=== PATIENT | female | born 2005 | race Caucasian/White ===

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

== ENCOUNTER 2024-02-02 22:57 | Inpatient (IN) ==
[2024-02-02 23:49] LABS: Appearance Urine Clear (Clear); Bilirubin Urine Negative (Negative); Blood Urine Negative (Negative); Color Urine Yellow; Glucose Urine UA Negative (Negative); Ketones Urine Trace (Negative); Leukocyte Esterase Urine Negative (Negative); Nitrite Urine Negative (Negative); Protein Urine Negative (Negative); Specific Gravity Urine 1.015 (1.000-1.030); Urobilinogen Urine Negative (Negative)
[2024-02-02 23:55] LABS: Basophils # (auto) 0.02 K/uL (0.00-0.20); Basophils % (auto) 0.3 %; Eosinophils # (auto) 0.03 K/uL (0.00-0.50); Eosinophils % (auto) 0.4 %; Hematocrit (blood only) 36.7 % (37.0-47.0); Hemoglobin 13.1 g/dl (12.0-16.0); Immature Granulocytes # (auto) 0.02 K/uL (0.01-0.20); Immature Granulocytes % (auto) 0.3 %; Lymphocytes # (auto) 2.08 K/uL (1.20-3.40); Mean Corpuscular Hemoglobin 29.8 pg (25.0-34.0); Mean Corpuscular Hgb Conc 35.7 g/dL (32.0-36.0); Mean Corpuscular Volume 83.4 fL (80.0-100.0); Mean Platelet Volume 9.4 fL (9.4-12.4); Monocytes # (auto) 0.24 K/uL (0.11-0.59); Monocytes % (auto) 3.6 %; Neutrophils # (auto) 4.32 K/uL (1.40-6.50); Neutrophils % (auto) 64.4 %; Platelet Count 296 K/uL (130-400); RDW Coefficient of Variation 13.3 % (11.5-14.5); RDW Standard Deviation 40.7 fL (36.4-46.3); White Blood Count 6.71 K/ul (4.8-10.8)
[2024-02-03 00:10] LABS: Amphetamines+Metham, Urine Neg (Neg); Barbiturates, Urine Neg (Neg); Benzodiazepine, Urine Neg (Neg); Cocaine, Urine Neg (Neg); MDMA (Ecstacy), Urine Neg (Neg); Marijuana, Urine Neg (Neg); Methadone, Urine Neg (Neg); Opiate, Urine Neg (Neg); Phencyclidine, Urine Neg (Neg)
[2024-02-03 00:13] LABS: Albumin Globulin Ratio 1.4 (0.9-2); Albumin Level 4.3 gm/dl (3.4-5.0); BUN Creatinine Ratio 7.6 (10-20); Bilirubin,Total 0.7 mg/dl (0.2-1.0); Est GFR (African American) 125.8 ml/min; Est GFR (Non-African American) 108.5 ml/min; Potassium 3.3 mmol/L (3.5-5.1); Total Protein 7.3 gm/dl (6.0-8.3)
[2024-02-03 00:28] LABS: Thyroid Stimulating Hormone 2.879 uIu/ml (0.300-4.500)
[2024-02-03 00:45] LABS: Acetaminophen < 3 ug/ml (10-30); Salicylate < 3.0 mg/dl (3.0-30)
[2024-02-03 01:33] LABS: Pregnancy Test, Urine Negative (Negative)
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
[2024-02-03] MEDS: POTASSIUM CHLORIDE CRTAB 20 MEQ TABCR PO STA (02:34)
[2024-02-03] MEDS ORDERED: NICOTINE POLACRILEX 2 MG GUM MT PRN (04:16)
[2024-02-03] MEDS ORDERED: BISMUTH SUBSALICYLATE LIQD 236 ML PO PRN (04:16)
[2024-02-03] MEDS ORDERED: SODIUM CHLORIDE 0.65% NA SOLN 45 ML (OCEAN) PRN (04:16)
[2024-02-03] MEDS ORDERED: hydrOXYzine HCl 25 MG TAB PO PRN (04:16)
[2024-02-03] MEDS ORDERED: ALUMINUM/MAGNESIUM SUSP 30 ML UDC PO PRN (04:16)
[2024-02-03] MEDS ORDERED: MAGNESIUM HYDROXIDE SUSP 30 ML UDC PO PRN (04:16)
[2024-02-03] MEDS: hydrOXYzine HCl 25 MG TAB PO PRN (07:20)
[2024-02-03] MEDS: NICOTINE 21 MG/24 HR TDSY TD SCH (08:56)
[2024-02-03] MEDS ORDERED: TRELEGY ELLIPTA INH SCH (10:00)
[2024-02-03] MEDS ORDERED: UMECLIDINIUM/VILANTEROL 62.5/25MCG 7 PUFFS/INHALER INH SCH (10:30)
[2024-02-03] MEDS ORDERED: FLUTICASONE FUROATE 100MCG 14 PUFFS/INHALER INH SCH (10:30)
[2024-02-03] MEDS: TOPIRAMATE 50 MG TAB PO SCH (11:10)
[2024-02-03] MEDS: OXcarbazepine 150 MG TABLET PO SCH (11:10)
[2024-02-03] MEDS: FLUTICASONE/UMECLIDIN/VILANTER 100-62.5-25 INH SCH (11:10)
[2024-02-03] MEDS: LORazepam 1 MG TAB PO STA (13:58)
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
[2024-02-03] MEDS: hydrOXYzine HCl 25 MG TAB PO SCH (20:49)
[2024-02-03] MEDS: MIRTAZAPINE TAB 15 MG TAB PO SCH (20:50)
[2024-02-03] MEDS: PRAZOSIN HCL 1 MG CAP PO SCH (20:51)
[2024-02-04] MEDS: LEVOTHYROXINE SODIUM 25 MCG TABLET PO SCH (08:52)
--- NOTE | 2024-02-04 15:43 | Psychiatric Progress Note ---
Date of Service February 04, 2024 Impression / Recommendations Impression This is a young lady whose had multiple hospitalizations throughout her life. She became very overwhelmed after her boyfriend found out that she had sent some pictures to an ex-boyfriend. She started catastrophizing and became suicidal, but she had no particular plan. She feels that when she takes her medications reliably, she does well. She also has support from her aunt who can help her take her medications reliably, she says. Unfortunately, her boyfriend broke up with her today and so she is having a particularly tough time this afternoon. I believe she requires inpatient hospitalization to stay safe. 02/04/2024: Patient is definitely doing better than yesterday after the break-up. However, I still have concerns about her reactive nests when things do not go her way. I suspect that she is trying to minimize, but she is holding it together and doing what is required of her here in the hospital. The family meeting should also help tell us how well she can be supervised over the next few days once she leaves. Today I spent about 38 minutes on the case. This included meeting with the patient, reviewing the chart, nursing report, multidisciplinary team meeting, orders, and documentation. (1) Major depressive disorder, recurrent severe without psychotic features: (2) PTSD (post-traumatic stress disorder): (3) Conversion disorder with attacks or seizures: Plan 02/03/2024: Patient is admitted here for safety, further evaluation, and treatment. We have her on every 15 minute observation for safety. I encouraged her to take part in our therapeutic milieu, attend groups and activities, maintain good hygiene, and try not to isolate. We are going to resume her home medications which include oxcarbazepine, mirtazapine, Topamax, levothyroxine, hydroxyzine, and Trelegy Ellipta. I am also going to add prazosin 1 mg nightly for her nightmares which she feels has helped in the past. Our medical people are available to evaluate and treat any medical issues that might arise. We will also set up a family meeting with her aunt before discharge. 02/04/2024: We will continue with our current level of observation and precautions. I encouraged her to continue to take part in the therapeutic milieu to help distract herself. We will continue her medications as written. Will try to set up that family meeting today if possible. Will continue to observe for how stable her mood is and see how she does under some stressful situations if there are any. Suicide Risk Level Suicide Risk Level: Low (q15 min observation checks) Risk Factors Assessment Do You Have Access To A Gun?: No Protective Factors Assessment Employed: Yes (Start at [employer] on Thursday) Interval History Identifying Information AJ MARQUES is a 18-year-old F who currently lives in [place] in an apartment with her mother's best friend whom she calls her "aunt." She presented to the emergency room early this morning voluntarily with concerns of suicidal ideation. Chief Complaint "I just had a very bad outburst." Review of Systems Sleep Information Total Hours of Sleep: 6.5 Sleep Comments: Pt admitted to unit at approx. 0400. Meal Information Percent Meal Consumed - Breakfast: 50 Percent Meal Consumed - Lunch: 100 Percent Meal Consumed - Dinner: 100 Subjective Subjective Today I met with the patient, received nursing report, and reviewed the chart. We also had a multidisciplinary team meeting to discuss her care. Estephania is in our hospital after she presented to the emergency department with concerns of suicidal ideation. Staff report they worry that she is minimizing because she wants out of the hospital. Yesterday afternoon her boyfriend broke up with her on the phone. She ended up getting a dose of Ativan which did help calm her down. She has an appointment at [facility] on Thursday. 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 She also has therapy already set up. Staff are going to also try to see if we can get a family meeting set up today. Yesterday, it came up that she has had some concerns about having tics. When I met with the patient today, she was pleasant and cooperative with me. She said that she spoke with her boyfriend and he feels that they can still be friends and that was reassuring for the patient. She is hopeful that we can set up the family meeting with her aunt today. She did not have any nightmares last night with the help of prazosin. She is tolerating her medications just fine. She feels well physically. Today she describes her mood as "happy and motivated." She feels like she has good support from her aunt. Earlier yesterday, we had some concerns that her aunt was going out of town for a few days, but the patient says that she is only going on a date on Thursday evening with her boyfriend and so she will be home later that same evening. Patient says that her aunt would be able to pick her up on Thursday after 5 PM if she is ready to leave. She denies any suicidal ideation, self-harm urges, or homicidal thoughts. She says that her appetite is really good and she slept well. Physical Exam Psychiatric Patient was alert and cooperative. Eye contact was good. She was clean and much better groomed today. Speech was normal. Mood was described as "happy and motivated." Affect was brighter and seemed more relaxed. Thought process was logical and goal-directed. There was no evidence of any hallucinations or delusions. Patient denied any suicidal ideation or homicidal thoughts. Memory and concentration were good. No abnormal movements were seen; there was no psychomotor agitation. Gait was normal. Insight and judgment are impaired. Vital Signs (Past 24 Hours) Last Vital Signs Temp 36.4 C L 02/04/24 06:38 Pulse 81 02/04/24 06:40 Resp 16 02/04/24 06:38 BP 94/63 L 02/04/24 06:40 Pulse Ox 99 02/03/24 14:02 O2 Del Method Room Air 02/03/24 14:02 Results & Data ([facility]) Current Inpatient Medications Current Inpatient Medications: Current Inpatient Medications Acetaminophen (Acetaminophen 325 Mg Tab) 650 mg PO Q4H PRN PRN Reason: Headache or Minor Fever Stop: 03/04/24 04:15 Al Hydrox/Mg Hydrox/Simethicone (Aluminum/Magnesium Susp 30 Ml Udc) 30 ml PO Q4H PRN PRN Reason: GI Upset Stop: 03/04/24 04:15 Bismuth Subsalicylate (Bismuth Subsalicylate Liqd 236 Ml) 15 ml PO PRN PRN PRN Reason: Loose Stool Stop: 03/04/24 04:15 Fluticasone/Umeclidinium/Vilanterol (Fluticasone/Umeclidin/Vilanter 100-62.5-25) 1 puffs INH DAILY [facility] Stop: 03/04/24 10:59 Last Admin: 02/04/24 08:53 Dose: 1 puffs Hydroxyzine HCl (Hydroxyzine Hcl 25 Mg Tab) 25 mg PO Q4H PRN PRN Reason: Anxiety Stop: 03/04/24 04:15 Last Admin: 02/03/24 13:29 Dose: 25 mg Hydroxyzine HCl (Hydroxyzine Hcl 25 Mg Tab) 50 mg PO BID [facility] Stop: 03/04/24 20:59 Last Admin: 02/04/24 08:52 Dose: 50 mg Levothyroxine Sodium (Levothyroxine Sodium 25 Mcg Tablet) 25 mcg PO DAILYBB [facility] Stop: 03/05/24 07:59 Last Admin: 02/04/24 08:52 Dose: 25 mcg Magnesium Hydroxide (Magnesium Hydroxide Susp 30 Ml Udc) 30 ml PO DAILY PRN PRN Reason: Constipation Stop: 03/04/24 04:15 Mirtazapine (Mirtazapine Tab 15 Mg Tab) 7.5 mg PO HS [facility] Stop: 03/04/24 21:59 Last Admin: 02/03/24 20:50 Dose: 7.5 mg Miscellaneous (Remove Nicoderm Patch) 1 each N/A DAILY@0859 [facility] Stop: 03/04/24 08:58 Last Admin: 02/04/24 08:58 Dose: Not Given Nicotine (Nicotine 21 Mg/24 Hr Tdsy) 21 mg TD QAM [facility] Stop: 03/04/24 08:59 Last Admin: 02/04/24 08:58 Dose: 21 mg Nicotine Polacrilex (Nicotine Polacrilex 2 Mg Gum) 1 piece MT PRN PRN PRN Reason: Nicotine Withdrawal Symptoms Stop: 03/04/24 04:15 Oxcarbazepine (Oxcarbazepine 150 Mg Tablet) 150 mg PO BID [facility] Stop: 03/04/24 09:59 Last Admin: 02/04/24 08:53 Dose: 150 mg Prazosin HCl (Prazosin Hcl 1 Mg Cap) 1 mg PO HSZ [facility] Stop: 03/04/24 21:59 Last Admin: 02/03/24 20:51 Dose: 1 mg Sodium Chloride (Sodium Chloride 0.65% Na Soln 45 Ml ([place])) 1 - 2 sprays NA PRN PRN PRN Reason: Nasal Dryness/Congestion Stop: 03/04/24 04:15 Topiramate (Topiramate 50 Mg Tab) 50 mg PO BID [facility] Stop: 03/04/24 09:59 Last Admin: 02/04/24 08:53 Dose: 50 mg Mental Health & Subst Abuse Tx Psychiatrist Name of Psychiatrist: Lorna Kenny Psychiatrist's Date Of Appointment With Psychiatric Provider: 02/08/24 Time of Appointment with Psychiatrist: 10:30 AM Psychiatric Appointment Comment: [address] [address] Therapist Name of Therapist: [facility] Therapist's Radiation Control Technician Name of Radiation Control Technician: NA Post Discharge Appointments Primary Care Physician Name Of Family Doctor/PCP: Lorna Lock Primary Care Provider Appointment Comment: [address] [facility] [address] Contact Information Discharge Discharge Address: [address] [place] [address]
[2024-02-04] MEDS: ACETAMINOPHEN 325 MG TAB PO PRN (17:52)
--- NOTE | 2024-02-05 15:28 | Psychiatric Progress Note ---
Date of Service February 05, 2024 Impression / Recommendations Impression This is a young lady whose had multiple hospitalizations throughout her life. She became very overwhelmed after her boyfriend found out that she had sent some pictures to an ex-boyfriend. She started catastrophizing and became suicidal, but she had no particular plan. She feels that when she takes her medications reliably, she does well. She also has support from her aunt who can help her take her medications reliably, she says. Unfortunately, her boyfriend broke up with her today and so she is having a particularly tough time this afternoon. I believe she requires inpatient hospitalization to stay safe. 02/05/2024: Day by day, the patient seems to be showing steady improvement. She is participating well and working hard. Family meeting went well. We will reevaluate tomorrow and likely discharge soon. Today I spent about 37 minutes on the case. This included meeting with the patient, reviewing the chart, nursing report, multidisciplinary treatment team meeting, orders, and documentation. (1) Major depressive disorder, recurrent severe without psychotic features: (2) PTSD (post-traumatic stress disorder): (3) Conversion disorder with attacks or seizures: Plan 02/03/2024: Patient is admitted here for safety, further evaluation, and treatment. We have her on every 15 minute observation for safety. I encouraged her to take part in our therapeutic milieu, attend groups and activities, maintain good hygiene, and try not to isolate. We are going to resume her home medications which include oxcarbazepine, mirtazapine, Topamax, levothyroxine, hydroxyzine, and Trelegy Ellipta. I am also going to add prazosin 1 mg nightly for her nightmares which she feels has helped in the past. Our medical people are available to evaluate and treat any medical issues that might arise. We will also set up a family meeting with her aunt before discharge. 02/04/2024: We will continue with our current level of observation and precautions. I encouraged her to continue to take part in the therapeutic milieu to help distract herself. We will continue her medications as written. Will try to set up that family meeting today if possible. Will continue to observe for how stable her mood is and see how she does under some stressful situations if there are any. 02/05/2024: We will continue with our current level of observation and precautio ns. We will continue with her medications which seem to be helping. She is not having nightmares. Family meeting went well and we will look towards a discharge soon hopefully. We just want 1 more day showing a pattern of stability and being able to control her emotions before we discharge. Suicide Risk Level Suicide Risk Level: Low (q15 min observation checks) Risk Factors Assessment Do You Have Access To A Gun?: No Protective Factors Assessment Employed: Yes (Start at [employer] on Thursday) Interval History Identifying Information AJ MARQUES is a 18-year-old F who currently lives in [place] in an apartment with her mother's best friend whom she calls her "aunt." She presented to the emergency room early voluntarily with concerns of suicidal ideation. Chief Complaint "I just had a very bad outburst." Review of Systems Sleep Information Total Hours of Sleep: 7 Sleep Comments: Pt admitted to unit at approx. 0400. Meal Information Percent Meal Consumed - Breakfast: 100 Percent Meal Consumed - Lunch: 100 Percent Meal Consumed - Dinner: 100 Subjective Subjective Today I met with the patient, received nursing report, and reviewed her chart. We also had a multidisciplinary treatment team meeting to discuss her case. The patient is in our hospital due to concerns of suicidal ideation although she denied a plan. There was some vague talk about crashing her car. Staff report that she was describing her mood at 8 out of 10 but still somewhat overwhelmed. She had a good visit with her aunt. We found out that she is being followed by the youth services through a telehealth case manager and they have her on a list for a senior living. She completed her safety plan yesterday. She has done well in the therapy groups. She had a family meeting today at 10:30 AM. Staff have also noticed some of the motor tics that have been occurring even when she does not know where watching. When I met with the patient today, she had already had a family meeting and it sounds like it went very well. She and her aunt came up with a good plan for safety but also for making sure that the patient takes her medications reliably. Patient is denying suicidal or homicidal thoughts. She is eager to get out of the hospital soon. She has been very pleasant and cooperative. We also found out that her aunt's mother lives just a few doors down the street and can offer support. Physical Exam Psychiatric Patient was alert and cooperative. Eye contact was good. She was clean and well-groomed. Speech was normal. Mood was described as "happy." Affect was bright. Thought process was logical and goal-directed. There was no evidence of any hallucinations or delusions. Patient denied any suicidal ideation or homicidal thoughts. Memory and concentration were good. No abnormal movements were seen; there was no psychomotor agitation. Gait was normal. Insight and judgment are impaired. Vital Signs (Past 24 Hours) Last Vital Signs Temp 36.3 C L 02/05/24 06:23 Pulse 104 H 02/05/24 06:25 Resp 16 02/05/24 06:23 BP 97/64 L 02/05/24 06:25 Pulse Ox 96 02/05/24 06:23 O2 Del Method Room Air 02/05/24 06:23 Results & Data ([facility]) Current Inpatient Medications Current Inpatient Medications: Current Inpatient Medications Acetaminophen (Acetaminophen 325 Mg Tab) 650 mg PO Q4H PRN PRN Reason: Headache or Minor Fever Stop: 03/04/24 04:15 Last Admin: 02/04/24 17:52 Dose: 650 mg Al Hydrox/Mg Hydrox/Simethicone (Aluminum/Magnesium Susp 30 Ml Udc) 30 ml PO Q4H PRN PRN Reason: GI Upset Stop: 03/04/24 04:15 Bismuth Subsalicylate (Bismuth Subsalicylate Liqd 236 Ml) 15 ml PO PRN PRN PRN Reason: Loose Stool Stop: 03/04/24 04:15 Fluticasone/Umeclidinium/Vilanterol (Fluticasone/Umeclidin/Vilanter 100-62.5-2 5) 1 puffs INH DAILY [facility] Stop: 03/04/24 10:59 Last Admin: 02/05/24 08:42 Dose: 1 puffs Hydroxyzine HCl (Hydroxyzine Hcl 25 Mg Tab) 25 mg PO Q4H PRN PRN Reason: Anxiety Stop: 03/04/24 04:15 Last Admin: 02/04/24 19:48 Dose: 25 mg Hydroxyzine HCl (Hydroxyzine Hcl 25 Mg Tab) 50 mg PO BID [facility] Stop: 03/04/24 20:59 Last Admin: 02/05/24 08:42 Dose: 50 mg Levothyroxine Sodium (Levothyroxine Sodium 25 Mcg Tablet) 25 mcg PO DAILYBB [facility] Stop: 03/05/24 07:59 Last Admin: 02/05/24 08:42 Dose: 25 mcg Magnesium Hydroxide (Magnesium Hydroxide Susp 30 Ml Udc) 30 ml PO DAILY PRN PRN Reason: Constipation Stop: 03/04/24 04:15 Mirtazapine (Mirtazapine Tab 15 Mg Tab) 7.5 mg PO HS [facility] Stop: 03/04/24 21:59 Last Admin: 02/04/24 20:43 Dose: 7.5 mg Miscellaneous (Remove Nicoderm Patch) 1 each N/A DAILY@0859 [facility] Stop: 03/04/24 08:58 Last Admin: 02/05/24 08:49 Dose: 1 each Nicotine (Nicotine 21 Mg/24 Hr Tdsy) 21 mg TD QAM [facility] Stop: 03/04/24 08:59 Last Admin: 02/05/24 08:43 Dose: 21 mg Nicotine Polacrilex (Nicotine Polacrilex 2 Mg Gum) 1 piece MT PRN PRN PRN Reason: Nicotine Withdrawal Symptoms Stop: 03/04/24 04:15 Oxcarbazepine (Oxcarbazepine 150 Mg Tablet) 150 mg PO BID [facility] Stop: 03/04/24 09:59 Last Admin: 02/05/24 08:42 Dose: 150 mg Prazosin HCl (Prazosin Hcl 1 Mg Cap) 1 mg PO HSZ [facility] Stop: 03/04/24 21:59 Last Admin: 02/04/24 20:43 Dose: 1 mg Sodium Chloride (Sodium Chloride 0.65% Na Soln 45 Ml ([place])) 1 - 2 sprays NA PRN PRN PRN Reason: Nasal Dryness/Congestion Stop: 03/04/24 04:15 Topiramate (Topiramate 50 Mg Tab) 50 mg PO BID [facility] Stop: 03/04/24 09:59 Last Admin: 02/05/24 08:42 Dose: 50 mg Mental Health & Subst Abuse Tx Psychiatrist Name of Psychiatrist: Lorna Kenny Psychiatrist's Date Of Appointment With Psychiatric Provider: 02/08/24 Time of Appointment with Psychiatrist: 10:30 AM Psychiatric Appointment Comment: [address] [place] [address] Therapist Name of Therapist: [facility] Therapist's Therapy Appointment Comment: Please input your payment info and call to schedule. Office Secretary Name of Office Secretary: TONIE Post Discharge Appointments Primary Care Physician Name Of Family Doctor/PCP: [facility] Date of Future Appointment with PCP: 02/09/24 Time of Appointment with PCP: 1:25 PM arrival time Provider Appointment Comment: [address] [place], [place] [address] [address] Contact Information Discharge Discharge [address]: [address] [place] [address] [place] [address]
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
== END 2024-02-06 10:35 | disposition home or self-care (01) | DRG 885 ==
LOC: ED 22:57 → 3S 02-03 03:30